=== PATIENT | male | born 2000 ===

== ENCOUNTER → 2021-12-31 | Outpatient (CLI) | payer OTHER ==
[2021-12-31 14:27] LABS: Source, Urine Clean Catch
[2021-12-31 14:42] LABS: White Blood Cells, Urine 0-2 /hpf (0-5)
[2021-12-31 14:43] LABS: Bacteria Not Seen /hpf; Red Blood Cells, Urine Not Seen /hpf (0-2); Squamous Epithelial Cells Rare /hpf (Few)
[2022-01-02 01:09] LABS: CHLAMYDIA TRACHOMATIS, NAA Negative (Negative)
== END | disposition home or self-care (01) ==
LOC: LAB SHORT 14:09
PROVIDERS: General Practice
DX: N50.811 Right testicular pain (principal)
CPT/HCPCS: 81015; 87086; 87491; 87591